=== PATIENT | female | born 1950 | race Hispanic/Latino ===

== ENCOUNTER 2017-09-22 18:35 | Emergency (ER) | payer MEDICARE, OTHER ==
[~2017-09-22] VITALS: Ht 162.6 cm; Wt 108.9 kg
[~2017-09-22 18:35] MED LIST: AMLODIPINE BESY10 MG PO; BIOTIN2500 MCG PO; BISACODYL5 MG PO; CETIRIZINE HCL10 MG PO; GLIMEPIRIDE2 MG PO; MECLIZINE HCL12.5 MG PO; METOPROLOL SUCC50 MG PO; RANITIDINE HCL150 M1 PO; SYNTHROID50 MCG PO; TRIAMTERENE-HCTZ1 EA PO; ULTRAM50 MG PO
--- OUTSIDE RECORDS SUMMARY | 2017-09-22 18:37 | XMS REPORT ---
Author Author [facility] Address Unknown Phone Unavailable Care Team Providers Care Tankage Supervisor Name Role Phone DARRELL RUDD Unavailable Unavailable Problems This patient has no known problems. Allergies, Adverse Reactions, Alerts This patient has no known allergies or adverse reactions. Medications This patient has no known medications. Results Test Description Test Time Test Comments Text Results Atomic Results Result Comments MAMMOGRAPHY DIGITAL SCR BILAT [place] [address] Patient Name: GAEL CASTRO MR #: [id number] : 1950 Age/Sex: 67/F Req #: [id number] [facility] Physician: Ordered by: DARRELL RUDD MD Report #: [id number] Location: MAMMO Room/Bed: ____ Procedure: [id number] MG/MAMMOGRAPHY DIGITAL SCR BILAT Exam Date: Exam Time: 0830 REPORT STATUS: Signed #[id number] - [id number] #BILATERAL DIGITAL SCREENING MAMMOGRAM WITH CAD: CLINICAL: Routine screening. No prior exams were available for comparison. Current study contains 6 films. There are scattered fibroglandular elements in both breasts. Current study was also evaluated with a Computer Aided Detection (CAD) system. There are benign nodules in both breasts. There also are benign calcifications in both breasts. No significant masses, calcifications, or other findings are seen in either breast. IMPRESSION: BENIGN There is no mammographic evidence of malignancy. A 1 year screening mammogram is recommended. The patient will be notified by letter of the results. Taj Santillan Jr., D.O. cw/:04/30/2017 12:48:48 Video Journalist: Diana CHAMPAGNE)(Julian) , [facility] letter sent: Normal Exam Mammogram BI -RADS: 2 Benign Dictated By: TAJ SANTILLAN DO 1248 Transcribed By: SEAN on 04/30/17 1248 COPY TO: DARRELL RUDD MD
== END 2017-09-22 20:20 | disposition short-term general hospital (02) ==
LOC: ER 18:35
DX: M54.9 Dorsalgia, unspecified (principal)

== ENCOUNTER → 2018-07-06 | Outpatient (CLI) | payer MEDICARE, OTHER | LOC: MAMMO 11:43 | PROVIDERS: ATTEND Internal Medicine | DX: Z12.31 Encounter for screening mammogram for malignant neoplasm of breast (principal) | CPT/HCPCS: 77067 ==